=== PATIENT | female | born 1955 | race Caucasian/White ===

== ENCOUNTER → 2016-06-16 | Outpatient (CLI) | payer BC ==
--- NOTE | 2016-06-16 16:22 | MA ---
Diagnostic Bilateral Digital Mammogram With Tomosynthesis Clinical Indications: Right breast lump history of left breast cancer Technique: Standard digital cephalocaudal and tomosynthesis mediolateral oblique projections are obt ained. The digital images were processed by the [employer] computer aided detection system. Comparison: April 2015, April 2014, April 2013 and April 2012 Breast density: C, moderately dense. Findings: CAD was reviewed. No mammographic abnormality At the 4-5:00 position of the right breast wh ere the patient's physician feels a palpable lump. Post therapeutic changes in the left breast are st able and no suspicious areas are identified. Impression: No mammographic correlate to the new palpable lump in the right breast. Recommendation: Further imaging with ultrasound. We will proceed to this shortly. BI-RADS 0. Additional imaging of the right breast lump with ultrasound. [facility] will send a result letter to the patient. Negative mammography should not preclude additional workup of a clinically suspicious finding. The patient's information is entered into a reminder system with a target due date for her next mammo gram.
--- NOTE | 2016-06-16 17:05 | US ---
Right Breast Ultrasound History: Palpable thickening 5:00 radial identified by physician, history of contralateral breast can cer Comparison: Mammogram earlier in the day (negative) Technique: I first performed a directed physical examination. This was followed by ultrasound exam with a high frequency linear transducer. Findings: On physical examination there is an anti radially oriented somewhat nodular region At the 5 :00 radial, approximately 4 cm from the nipple. Directed sonography of this area, reveals fatty lobul es. No solid abnormality, cyst or sonographic architectural distortion is identified. Impression: The patient's palpable ridges related to normal fatty lobules. This can be followed clini waldo. Recommendation: Screening mammography in one year. Serial physical examination to ensure stability of the palpable thickening. Results and recommendation were discussed with the patient in detail, who is in agreement with the pl an. BI-RADS 2. Benign.
== END ==
LOC: FIMAGING 15:14
PROVIDERS: ATTEND Obstetrics & Gynecology
DX: N63 Unspecified lump in breast (principal); Z85.3 Personal history of malignant neoplasm of breast
CPT/HCPCS: G0204; G0279

== ENCOUNTER → 2017-06-20 | Outpatient (CLI) | payer BC | LOC: FIMAGING 13:20 | PROVIDERS: ATTEND Internal Medicine Hematology & Oncology | DX: Z12.31 Encounter for screening mammogram for malignant neoplasm of breast (principal); Z85.3 Personal history of malignant neoplasm of breast ==

== ENCOUNTER → 2018-06-24 | Outpatient (CLI) | payer BC | LOC: FIMAGING 13:39 | PROVIDERS: ATTEND Internal Medicine Hematology & Oncology | DX: Z12.31 Encounter for screening mammogram for malignant neoplasm of breast (principal); Z85.3 Personal history of malignant neoplasm of breast ==

== ENCOUNTER → 2018-06-27 | Outpatient (CLI) | payer BC | LOC: FIMAGING 13:25 | PROVIDERS: ATTEND Registered Nurse | DX: M85.80 Other specified disorders of bone density and structure, unspecified site (principal); Z78.0 Asymptomatic menopausal state; Z85.3 Personal history of malignant neoplasm of breast ==